=== PATIENT | female | born 1950 | race Caucasian/White ===

== ENCOUNTER 2024-10-13 07:11 | Day surgery (SDC) | payer BC ==
[2024-10-11 10:50] VITALS: BMI 30.6
[2024-10-13] MEDS ORDERED: LIDOCAINE HCL/PF 1% SDV 5ML VIAL ONE (07:39)
[2024-10-13] MEDS ORDERED: ACETAMINOPHEN 500 MG TABLET (FP) PO PRN (09:29)
[2024-10-13 09:56] VITALS: RESP 20
[2024-10-13] MEDS: LIDOCAINE HCL/PF 2% SDV 5ML VIAL INF ONE ×2 (10:24)
[2024-10-13] MEDS: BUPIVACAINE HCL/PF 0.75% 10 ML VIAL NR ONE ×2 (11:48)
[2024-10-13 12:26] VITALS: BP 145/74; PULSE 81; TEMP 97.3
== END 2024-10-13 13:05 | disposition home or self-care (01) ==
LOC: JASU-SURG 07:11
PROVIDERS: ATTEND Pain Medicine Pain Medicine
PROC: 015D3ZZ Destruction of Femoral Nerve, Percutaneous Approach (ICD-10-PCS; 2024-10-13)
PROC: 015D3ZZ Destruction of Femoral Nerve, Percutaneous Approach (ICD-10-PCS; principal; 2024-10-13 11:00)
DX: M25.562 Pain in left knee (principal)